=== PATIENT | male | born 1960 | race Caucasian/White ===

== ENCOUNTER → 2017-11-25 | Outpatient (CLI) | payer OTHER ==
[~2017-11-25] MED LIST: ASPEC325 PO; CLB200 PO; GLYB5TAB3 PO; HYDR-5688 PO; LISI10TA PO; METF500T PO; MULT-506 PO; SIMV20TA2 PO
[2017-11-25 13:20] LABS: BASO % 0.4 %; BASO ABS # 0.05 K/uL (0-0.2); EOS % 1.7 %; EOS ABS # 0.19 K/uL (0-0.5); HEMATOCRIT 43.4 % (42-52); HEMOGLOBIN 14.6 g/dL (14.0-18.0); IG# 0.13 K/uL (0.00-0.02); LYMPH % 27.1 %; LYMPH ABS # 3.09 K/uL (1.2-3.4); MEAN CELL VOLUME 89.5 fL (80-100); MEAN CORPUSCULAR HEMOGLOBIN 30.1 pg (25-34); MEAN CORPUSCULAR HGB CONC 33.6 g/dl (32-36); MEAN PLATELET VOLUME 9.3 fL (7.4-10.4); MONO % 11.8 %; MONO ABS # 1.35 K/uL (0.11-0.59); NEUT % 57.9 %; NEUT ABS # 6.59 K/uL (1.4-6.5); PLATELET COUNT 175 K/uL (130-400); RED CELL DISTRIBUTION WIDTH CV 13.3 % (11.5-14.5); RED CELL DISTRIBUTION WIDTH SD 43.8 fL (36.4-46.3)
--- NOTE | 2017-11-26 09:25 | DIAGNOSTIC IMAGING REPORT ---
THREE-PHASE BONE SCAN OF THE PELVIS AND HIPS CLINICAL HISTORY: Left hip pain and swelling post total hip arthroplasty. COMPARISON STUDY: Pelvis and left hip radiographs October 17, 2015. TECHNIQUE: 27 mCi of technetium 99m MDP was injected IV at 1:00 PM on November 25, 2017. Immediately following injection, flow images were obtained in the anterior and posterior projections. Blood pool images were obtained followed by 3 h delayed phase imaging of the pelvis and hips in multiple projections. FINDINGS: No hyperemia is identified within the pelvis or hips. There is moderate uptake adjacent to the left hip arthroplasty. Specifically, moderate uptake is noted adjacent to the acetabular component and within the greater trochanter of the left femur. There is no significant radiotracer uptake adjacent to the tip of either femoral component. There is mild uptake adjacent to the right hip arthroplasty. Multifocal uptake within the spine and knees is likely degenerative. IMPRESSION: 1. No evidence of hyperemia. 2. Moderate uptake within the left acetabulum and greater trochanter of the left femur. This uptake is nonspecific and could reflect remodeling. Loosening could appear similar. 3. Mild uptake within the right hip which is likely within normal limits following arthroplasty. Electronically signed by: Anant Hensley M.D. 11/26/2017 9:24 AM Dictated Date/Time: 11/25/2017 4:49 PM
== END | disposition home or self-care (01) ==
LOC: C.NUCL 12:36
DX: Z96.642 Presence of left artificial hip joint (principal)

== ENCOUNTER 2018-03-28 09:48 | Inpatient (IN) | payer OTHER ==
[2018-03-02 12:49] VITALS: BMI 33.0
--- NOTE | 2018-03-02 14:02 | DIAGNOSTIC IMAGING REPORT ---
CHEST 2 VIEWS ROUTINE CLINICAL HISTORY: PAT preoperative evaluation COMPARISON STUDY: 10/02/2015 FINDINGS: The bones soft tissues and hemidiaphragms are normal. The cardiomediastinal silhouette is normal. The lungs are clear. The pulmonary vasculature is normal. IMPRESSION: Negative chest. The above report was generated using voice recognition software. It may contain grammatical, syntax or spelling errors. Electronically signed by: Chemo Gandara M.D. 03/02/2018 2:01 PM Dictated Date/Time: 03/02/2018 1:59 PM
[2018-03-02 14:17] LABS: BASO % 0.4 %; BASO ABS # 0.04 K/uL (0-0.2); EOS % 1.3 %; EOS ABS # 0.14 K/uL (0-0.5); HEMOGLOBIN 14.6 g/dL (14.0-18.0); LYMPH % 24.9 %; LYMPH ABS # 2.65 K/uL (1.2-3.4); MEAN CELL VOLUME 88.8 fL (80-100); MEAN CORPUSCULAR HEMOGLOBIN 30.2 pg (25-34); MONO % 8.8 %; MONO ABS # 0.94 K/uL (0.11-0.59); NEUT % 63.7 %; NEUT ABS # 6.77 K/uL (1.4-6.5); PLATELET COUNT 187 K/uL (130-400); RED CELL DISTRIBUTION WIDTH CV 13.2 % (11.5-14.5); WHITE BLOOD COUNT 10.64 K/uL (4.8-10.8)
[2018-03-02 15:18] LABS: CALCIUM 8.9 mg/dl (8.5-10.1); CREATININE 1.12 mg/dl (0.60-1.40); POTASSIUM 4.2 mmol/L (3.5-5.1)
[~2018-03-28] VITALS: Ht 182.9 cm; Wt 107.0 kg
[2018-03-28] VITALS (7 sets, daily range): BP systolic 108–152; BP diastolic 57–78; PULSE 55–82; TEMP 36.3–36.9; O2SAT 98–100; Ht 182.9 cm; Wt 107.0 kg
[~2018-03-28 09:48] MED LIST changes: +ACETAMINOPHEN 500 MG TAB PO SCH; -ASPEC325 PO; +ASPI-232 PO; +CEFAZOLIN 2000MG IV PUSH 15 ML IV SCH; -CLB200 PO; +CeleBREX 200 MG CAP PO SCH; +GABAPENTIN 600 MG PO SCH; -HYDR-5688 PO; +LACTATED RINGER'S 1000ML 1,000 ML IV SCH; +LACTATED RINGER'S 1000ML IV SCH; +LACTATED RINGER'S 500 ML IV SCH
[2018-03-28] MEDS ORDERED: FENTANYL CITRATE INJ 50 MCG/1 ML 2 ML VIAL ONE ×3 (12:16→14:42)
[2018-03-28] MEDS ORDERED: MIDAZOLAM HCL 1 MG/ML 2ML VIAL ONE ×2 (12:16→13:27)
--- NOTE | 2018-03-28 12:27 | History & Physical Bridge Note ---
H&P Re-Evaluation Bridge Note: I have examined the patient, reviewed the History & Physical and in the interval since the performance of the History & Physical I have noted the following changes of clinical significance: No changes noted
--- NOTE | 2018-03-28 12:28 | History and Physical ---
History & Physical Date March 28, 2018. Chief Complaint Back and leg pain History of Present Illness The patient is a 58 year old male with complaints of back and leg pain Past Medical/Surgical History Medical Problems: (1) Arthritis of left hip Additional History Hepatic Disease: No Endocrine Disorder: No Kidney Disease: No Hypertension: Yes Heart Disease: No Bleeding Tendencies: No Infectious Diseases: No Other: Diabetes Allergies Coded Allergies: No Known Allergies (Unverified , 03/28/18) Home Medications Scheduled Aspirin (Aspir-81), 1 TAB PO QAM Glyburide-Metformin (Glucovance 5/500 Mg), 1 TAB PO BID Lisinopril (Prinivil), 10 MG PO HS Metformin Hcl (Glucophage), 500 MG PO BID Multivitamin (Multivitamin), 1 TAB PO QAM Simvastatin (Zocor), 20 MG PO QPM Physical Examination Skin: warm/dry, no rash Eyes: normal inspection, EOMI, sclerae normal ENT: normal ENT inspection, pharynx normal Head: normocephalic, atraumatic Neck: supple, no adenopathy, trachea midline Respiratory/Chest: lungs clear, normal breath sounds, no respiratory distress Cardiovascular: regular rate, rhythm, no edema, no murmur Abdomen / GI: normal bowel sounds, non tender Back: normal inspection Extremities: normal inspection, normal range of motion Neurologic/Psych: no motor/sensory deficits, alert, normal reflexes, oriented x 3 Diagnosis Lumbar spinal stenosis with neurogenic claudication Plan of Treatment Decompression and fusion L4-5 L5-S1
[2018-03-28] MEDS ORDERED: HYDROmorphone INJ 1 MG/ML SYR IV PRN (12:30)
[2018-03-28] MEDS ORDERED: ONDANSETRON INJ 2 MG/ML 2 ML VIAL IV PRN ×2 (12:30→15:45)
[2018-03-28] MEDS ORDERED: EpHEDrine SULFATE INJ 50 MG/ML AMP IV PRN (12:30)
[2018-03-28] MEDS ORDERED: ATROPINE SULFATE 0.1 MG/ML 5ML SYR IV PRN (12:30)
[2018-03-28] MEDS ORDERED: BUPIVACAINE 0.25% 30 ML VIAL ONE (12:43)
[2018-03-28] MEDS ORDERED: BACITRACIN 50000 UNIT VIAL ONE (12:43)
[2018-03-28] MEDS ORDERED: EpINEphrine INJ 1MG/ML AMP 1 MG/ML AMP ONE (12:44)
[2018-03-28] MEDS ORDERED: HYDROmorphone INJ 2 MG/ML SYR/VIAL ONE (13:28)
[2018-03-28] MEDS ORDERED: EpHEDrine SULFATE 50MG/5ML SYR ONE (14:13)
[2018-03-28] MEDS ORDERED: LIDOCAINE HCL 2% 2 ML VIAL (20MG/ML) ONE (14:32)
[2018-03-28] MEDS ORDERED: DEXAMETHASONE SOD INJ 4 MG/ML VIAL ONE (14:32)
[2018-03-28] MEDS ORDERED: PROPOFOL IV EMULSION 10 MG/ML 20 ML VIAL ONE (14:32)
[2018-03-28] MEDS ORDERED: ROCURONIUM BROMIDE 10 MG/ML 5 ML VIAL ONE (14:32)
[2018-03-28] MEDS ORDERED: ONDANSETRON INJ 2 MG/ML 2 ML VIAL ONE ×2 (14:32→14:45)
[2018-03-28] MEDS ORDERED: NEOSTIGMINE METHYLSULFATE 1 MG/ML 10ML VIAL ONE (14:45)
[2018-03-28] MEDS ORDERED: GLYCOPYRROLATE INJ 0.2 MG/ML VIAL ONE (14:45)
[2018-03-28] MEDS ORDERED: FLOSEAL HEMOSTATIC MATRIX 10ML TOP ONE (14:54)
[2018-03-28] MEDS ORDERED: SODIUM CHLORIDE 0.9% 1000ML 1,000 ML IV SCH ×2 (15:40→17:30)
--- NOTE | 2018-03-28 15:40 | [facility] Operative Report ---
Operative Report Operative Date March 28, 2018. Pre-Operative Diagnosis SPINAL STENOSIS with neurogenic claudication Post-Operative Diagnosis Same as preoperative diagnosis Procedure(s) Performed 1. Lumbar decompression medial facetectomies foraminotomies L3-4 L4-5 L5-S1. #2 posterior spinal fusion L4-5 L5-S1. #3 placement posterior segmental instrumentation L4-5 L5-S1. #4 interbody fusion L4-5 L5-S1. #5 placement of titanium cage 9 x 26 at L5-S1 and 11 x 26 at L4-5. #6 placement of locally harvested autograft in the posterior lateral gutters. #7 placement InFUSE: Sponge, mass graft in the posterior lateral gutters and ostial amp in the interbody space. Surgeon DR. Fatuma COTA Endbander Surgeon(sDaryl BURTON PAC Estimated Blood Loss 275 ml Findings Severe spinal stenosis Specimens NONE Anesthesia Type General Description of Procedure Patient was met with preoperatively case discussed all questions addressed. After informed consent obtained patient was taken to the operative suite underwent intubation and placed in a prone position on the Ehsan table on top of the Louie frame. All bony prominences well-padded eyes inspected to ensure no external pressure placed upon them. This point the lumbar spine was prepped and draped in normal sterile fashion. Sharp dissection with the assistance of Bovie cautery was performed down to and exposing exposing the lamina and transverse processes of L4-L5 and sacral ala bilaterally. From a caudal to cephalad fashion complete laminectomy of L5 L4 partial laminectomy of L3 performed addressing severe lateral recess and foraminal disease. Pedicle screws were then placed in L4 L5-S1 levels bilaterally with the assistance of fluoroscopy and the purposes horace placed. Through a transforaminal approach on the right a complete discectomy of L5-S1 was performed endplates curetted to subcortical bleeding bone and a 9 x 26 mm titanium cage filled with ostium bone graft tapped in position. Then proceeded L4-5 and again through a transforaminal approach on the right complete discectomy performed endplates created to subcortical bleeding bone and a 11 x 26 mm titanium cage filled with ostial amp tapped in position. Rods then compressed locked in final position bilaterally. The transverse processes of L4-5 and sacral ala burred to subcortical bleeding bone. Infuse collagen sponge master graft and local autograft placed in the posterior gutters. 15 round OLGA drain inserted. Incision then closed with 1 Vicryl fascia 2-0 Vicryl substantially 4 Monocryl for fashion closure Steri-Strips sterile dressings placed. Patient weakened and taken to PACU in a stable condition. Please note Harriett Finley present throughout the entire procedure involved in patient positioning complex portions of the surgery and final skin closure. I attest to the content of the Intraoperative Record and any orders documented therein. Any exceptions are noted below.
--- NOTE | 2018-03-28 15:42 | DIAGNOSTIC IMAGING REPORT ---
LUMBAR SPINE 2 OR 3 VIEW CLINICAL HISTORY: L4-S1 DECOMPRESSION AND FUSION COMPARISON STUDY: No previous studies for comparison. Fluoroscopy time: 25 seconds. FINDINGS: 2 fluoroscopic images demonstrate L4-L5 and L5-S1 discectomies with interbody spacer placement. There is a posterior decompression. Bilateral pedicle screws are noted L4, L5 and S1 levels with interconnecting rods. Hardware is intact. There are no unexpected radiopaque foreign bodies. IMPRESSION: Fluoroscopic images demonstrating L4-S1 discectomies and fusion. Electronically signed by: Anant Hensley M.D. 03/28/2018 3:41 PM Dictated Date/Time: 03/28/2018 3:40 PM
[2018-03-28] MEDS ORDERED: BISACODYL 10 MG SUPP PR PRN (15:45)
[2018-03-28] MEDS ORDERED: ALUMINUM/MAGNESIUM SUSP 30 ML UDC PO PRN (15:45)
[2018-03-28] MEDS ORDERED: METOCLOPRAMIDE HCL INJ 5 MG/ML 2 ML VIAL IV PRN (15:45)
[2018-03-28] MEDS ORDERED: MAGNESIUM HYDROXIDE SUSP 30 ML UDC PO PRN (15:45)
[2018-03-28] MEDS ORDERED: LORAZEPAM INJ 0.5 MG in SYRINGE 0.75 ML IV PRN (15:45)
[2018-03-28] MEDS ORDERED: DO NOT ADMINISTER PNEUMOCOCCAL VACCINE PRN (15:45)
[2018-03-28] MEDS ORDERED: hydrOXYzine HCL 25 MG TAB PO PRN (15:45)
[2018-03-28] MEDS ORDERED: ACETAMINOPHEN IV 100 ML IV PRN (15:45)
[2018-03-28] MEDS ORDERED: FAMOTIDINE 20 MG TAB PO PRN (15:45)
[2018-03-28] MEDS ORDERED: LORAZEPAM 0.5 MG TAB PO PRN (15:45)
[2018-03-28] MEDS ORDERED: PROMETHAZINE HCL INJ 12.5 MG in SODIUM CHLORIDE 0.9% 50ML 50 ML IV PRN (15:45)
[2018-03-28] MEDS ORDERED: DO NOT ADMINISTER FLU VACCINE PRN (15:45)
[2018-03-28] MEDS ORDERED: ACETAMINOPHEN 500 MG TAB PO PRN (15:45)
[2018-03-28] MEDS ORDERED: NALOXONE HCL 0.4 MG/1 ML VIAL/CARP IV PRN ×2 (15:45)
[2018-03-28] MEDS ORDERED: SOD PHOSPHATE/SOD BIPHOSPHATE ENEMA 132 ML BTL PR PRN (15:45)
[2018-03-28] MEDS ORDERED: HYDROmorphone HCL 0.5MG/ML 50 ML CASSETTE ONE (15:58)
[2018-03-28] MEDS: FENTANYL CITRATE INJ 50 MCG/1 ML 2 ML VIAL IV PRN ×2 (16:19→16:24)
--- NOTE | 2018-03-28 16:39 | Anesthesiology Progress Note ---
Anesthesia Post Op Note Date & Time March 28, 2018 at 16:39 Vital Signs Pain Intensity: 4 Vital Signs Past 12 Hours Date Time Temp Pulse Resp B/P (MAP) Pulse Ox O2 Delivery O2 Flow Rate FiO2 03/28/18 16:30 62 13 118/59 100 Nasal Cannula 4 03/28/18 16:20 53 12 127/63 100 Nasal Cannula 4 03/28/18 16:10 60 12 123/66 100 Oxymask 8 03/28/18 16:00 67 16 128/73 100 Oxymask 10 03/28/18 15:54 36.7 76 12 156/69 100 Oxymask 10 03/28/18 10:18 36.5 55 18 152/78 98 Room Air Notes Mental Status: alert / awake / arousable, participated in evaluation Pt Amnestic to Procedure: Yes Nausea / Vomiting: adequately controlled Pain: adequately controlled Airway Patency, RR, SpO2: stable & adequate BP & HR: stable & adequate Hydration State: stable & adequate Anesthetic Complications: no major complications apparent
[2018-03-28] MEDS ORDERED: GLUCAGON FOR INJ 1 MG VIAL SQ PRN (17:45)
[2018-03-28] MEDS ORDERED: CARBOHYDRATES FOR HYPOGLYCEMIA PO PRN (17:45)
[2018-03-28] MEDS ORDERED: GLUCOSE 10 TABS/TUBE PO PRN (17:45)
[2018-03-28] MEDS ORDERED: GLUCOSE 40% GEL 15 GM TUBE PO PRN (17:45)
[2018-03-28] MEDS ORDERED: DEXTROSE 50% 50 ML SYR IV PRN (17:45)
--- NOTE | 2018-03-28 17:55 | Medical Consult ---
Consultation Date of Consultation: March 28, 2018. Attending Physician: Seven Kaiser D.O. Reason for Consultation: Medical consult History of Present Illness Pt is 58 y/o M with PMH HTN, HLD, DM II, hx colon CA s/p resection and chemo in 2010 seen in medical consult after spinal fusion L4-L5, L5-S1 by Dr. Kaiser. Patient states moderate pain at this time and has CURATOR OF COLLECTIONS pump. Denies nausea, vomiting. Tolerating fluids. Has Flores catheter in place. Does not feel that has passed gas since surgery. Last BM this morning. States some tingling and numbness persists to bilateral lower extremities. Denies fever/chills, diaphoresis, VASQUEZ, dizziness, syncope, vision changes, neck pain, CP, SOB, orthopnea, palpitations, cough, sore throat, choking, otalgia, rhinorrhea, abdominal pain, extremity edema, rashes. Past Medical/Surgical History Medical Problems: (1) Arthritis of left hip Status: Chronic (2) Colon cancer Status: Resolved (3) DM type 2 (diabetes mellitus, type 2) Status: Chronic (4) HTN (hypertension) Status: Chronic (5) Hyperlipidemia Status: Chronic (6) Lumbar stenosis with neurogenic claudication Status: Chronic Surgical Problems: (1) History of cataract surgery Status: Resolved (2) History of colon resection Permanent Comment: 2010 - colon CA Status: Resolved (3) History of lumbar surgery Permanent Comment: 03/28/18 - Dr Kaiser - [facility] Status: Resolved (4) History of total left hip arthroplasty Status: Resolved (5) History of total right hip arthroplasty Status: Resolved (6) Hx of cholecystectomy Status: Resolved Family History Diabetes mellitus FH: bladder cancer FH: colon cancer FH: stomach cancer Hypertension Social History Smoking Status: Never Smoker Smokeless Tobacco Use: No Alcohol Use: socially Drug Use: none Marital Status: Allergies Coded Allergies: No Known Allergies (Unverified , 03/28/18) Current Inpatient Medications Current Inpatient Medications Medications (Trade) Dose Ordered Sig/Kwesi Route Start Time Stop Time Status Last Admin Dose Admin Cefazolin Sodium 15 ml @ 3.75 mls/ min PREOP IV 03/28/18 06:00 03/28/18 18:00 03/28/18 12:58 3.75 MLS/MIN Acetaminophen (Tylenol Tab) 1,000 mg PREOP PO 03/28/18 06:00 03/28/18 18:00 03/28/18 10:46 1,000 MG Celecoxib (CeleBREX CAP) 200 mg PREOP PO 03/28/18 06:00 03/28/18 18:00 03/28/18 10:45 200 MG Gabapentin (Neurontin Cap) 600 mg PREOP PO 03/28/18 06:00 03/28/18 18:00 03/28/18 10:46 600 MG Lactated Ringer's 1,000 ml @ 15 mls/hr Q24H IV 03/28/18 06:00 03/29/18 05:59 03/28/18 10:46 15 MLS/HR Promethazine HCl 12.5 mg/Sodium Chloride 50.5 ml @ 202 mls/hr Q6H PRN IV 03/28/18 15:45 04/27/18 15:44 Ondansetron HCl (Zofran Inj) 4 mg Q6H PRN IV 03/28/18 15:45 04/27/18 15:44 Metoclopramide HCl (Reglan Inj) 10 mg Q6H PRN IV 03/28/18 15:45 04/27/18 15:44 Lorazepam (Ativan Tab) 0.5 mg Q8H PRN PO 03/28/18 15:45 04/27/18 15:44 Lorazepam 0.5 mg/ Syringe 1 ml @ 1 mls/min Q8H PRN IV 03/28/18 15:45 04/27/18 15:44 Pneumococcal Polysaccharide Vaccine 1 ea PRN PRN N/A 03/28/18 15:45 04/27/18 15:44 Influenza Virus Vacc Triv Types A&B 1 ea PRN PRN N/A 03/28/18 15:45 04/27/18 15:44 Polyethylene (Miralax Powder Packet) 17 gm Q6 PO 03/30/18 06:00 04/29/18 05:59 Bisacodyl (Dulcolax Supp) 10 mg DAILY PRN NV 03/28/18 15:45 04/27/18 15:44 Magnesium Hydroxide (Milk Of Magnesia Susp) 30 ml DAILY PRN PO 03/28/18 15:45 04/27/18 15:44 Hydromorphone HCl (Dilaudid Inj) 0.5-1mg prn moder... Q3H PRN IV 03/29/18 06:00 04/12/18 05:59 Oxycodone HCl (Roxicodone Immediate Rel Tab) 5-10mg prn moderate to sev... Q4H PRN PO 03/29/18 06:00 04/12/18 05:59 Cefazolin Sodium 2000 mg/Syringe 15 ml @ 3.75 mls/ min Q8H IV 03/28/18 20:00 03/29/18 04:03 Sodium Chloride 1,000 ml @ 150 mls/hr Q6H40M IV 03/28/18 17:30 04/27/18 17:29 Acetaminophen (Tylenol Tab) 1,000 mg Q8H PRN PO 03/28/18 15:45 04/27/18 15:44 Acetaminophen 100 ml @ 400 mls/hr Q8H PRN IV 03/28/18 15:45 04/27/18 15:44 Naloxone HCl (Narcan Inj) 0.1 mg Q5M PRN IV 03/28/18 15:45 04/27/18 15:44 Senna/Docusate Sodium (Senokot S Tab) 2 tab HS PO 03/28/18 21:00 04/27/18 20:59 Sodium Biphosphate/ Sodium Phosphate (Fleet Enema) 132 ml ONE PRN NV 03/28/18 15:45 04/27/18 15:44 Hydroxyzine HCl (Vistaril Tab) 25 mg Q8H PRN PO 03/28/18 15:45 04/27/18 15:44 Al Hydroxide/Mg Hydroxide (Maalox Susp) 30 ml Q6H PRN PO 03/28/18 15:45 04/27/18 15:44 Famotidine (Pepcid Tab) 20 mg Q12 PRN PO 03/28/18 15:45 04/27/18 15:44 Diphenhydramine HCl (Benadryl Cap) 25 mg Q6H PRN PO 03/28/18 15:45 04/27/18 15:44 Miscellaneous Information (Discontinue CURATOR OF COLLECTIONS) 1 ea ONE ONCE N/A 03/29/18 06:00 03/29/18 06:01 Naloxone HCl (Narcan Inj) 0.1 mg Q5M PRN IV 03/28/18 15:45 03/29/18 06:00 Hydromorphone HCl (Dilaudid Home Comfort Advisor) 25 mg PRN PRN IV 03/28/18 15:45 03/29/18 06:00 Sodium Chloride 1,000 ml @ 15 mls/hr Q24H IV 03/28/18 15:40 03/29/18 06:00 Aspirin (Ecotrin Tab) 81 mg QAM PO 03/29/18 09:00 04/28/18 08:59 Lisinopril (Zestril Tab) 10 mg HS PO 03/28/18 21:00 04/27/18 20:59 Simvastatin (Zocor Tab) 20 mg QPM PO 03/28/18 21:00 04/27/18 20:59 Insulin Glargine (Lantus Solostar Pen) 15 units Q12 SC 03/28/18 21:00 04/27/18 20:59 UNV Insulin Aspart (novoLOG ASPART) SLIDING SCALE If C... ACHS SC 03/28/18 21:00 04/27/18 20:59 UNV Glucose (Glucose 40% Gel) 15-30 GRAMS 15 GRAMS... UD PRN PO 03/28/18 17:45 04/27/18 17:44 UNV Glucose (Glucose Chew Tab) 4-8 Tablets 4 Tabl... UD PRN PO 03/28/18 17:45 04/27/18 17:44 UNV Dextrose (Dextrose 50% 50ML Syringe) 25-50ML 25ML FOR ... UD PRN IV 03/28/18 17:45 04/27/18 17:44 UNV Glucagon (Glucagon Inj) 1 mg UD PRN SQ 03/28/18 17:45 04/27/18 17:44 UNV Carbohydrates (Carbohydrates For Hypoglycemia) 15-30 GRAMS 15 grams if BSG 54-69... UD PRN PO 03/28/18 17:45 04/27/18 17:44 UNV Review of Systems See HPI for pertinent positives & negatives. All other systems reviewed and were otherwise negative Physical Exam Date Time Temp Pulse Resp B/P (MAP) Pulse Ox O2 Delivery O2 Flow Rate FiO2 03/28/18 17:35 36.5 69 18 139/74 (95) 100 Nasal Cannula 4.0 03/28/18 16:40 36.5 64 14 124/65 99 Nasal Cannula 4 03/28/18 16:30 62 13 118/59 100 Nasal Cannula 4 03/28/18 16:20 53 12 127/63 100 Nasal Cannula 4 03/28/18 16:10 60 12 123/66 100 Oxymask 8 03/28/18 16:00 67 16 128/73 100 Oxymask 10 03/28/18 15:54 36.7 76 12 156/69 100 Oxymask 10 03/28/18 10:18 36.5 55 18 152/78 98 Room Air General Appearance: WD/WN, no apparent distress Head: normocephalic, atraumatic Eyes: normal inspection, EOMI, sclerae normal ENT: hearing grossly normal, pharynx normal, + pertinent finding (mucous membranes moist) Neck: supple, trachea midline Respiratory/Chest: lungs clear, normal breath sounds, no respiratory distress Cardiovascular: regular rate, rhythm, no murmur Abdomen/GI: normal bowel sounds, non tender, soft Back: + pertinent finding (surgical dressing to lumbar region intact without significant drainage, some bloody drainage noted to surgical drain) Extremities/Musculoskelatal: normal capillary refill, no pedal edema, + pertinent finding (bilateral distal pulses intact, sensation to light touch intact, bilateral pedal pushes/pulls intact) Neurologic/Psych: alert, normal mood/affect, oriented x 3 Skin: warm/dry Laboratory Results Last 24 Hours Test 03/28/18 10:11 03/28/18 16:12 Bedside Glucose 154 mg/dl 145 mg/dl Assessment & Plan Pt post op day# 0 S/P L4-L5, L5-S1 Lumbar spinal fusion/decompression by Dr Kaiser -pain management per ortho -wound management per ortho -PT/OT as appropriate -DVT prophylaxis per ortho -incentive spirometry -monitor H&H for acute blood loss anemia DM II HA1c in am -hold oral meds -basal, bolus insulin per protocol HTN Stable -continue lisinopril HLD -continue simvastatin DVT Prophylaxis -per ortho Disposition admit medsurg Full code Follows with Dr Margarito Mcgee for routine care Pt was seen with Dr Bahena. See addendum Pt will be seen by Dr Lara remaining hospital course ATTENDING ADDENDUM patient seen and examined care coordinated with Ruby Bazan PA-C This is a 58-year-old male with chronic low back pain, underwent lumbar spinal decompression surgery today Recovering well postop Has minimum pain on surgical site, getting relief with morphine CURATOR OF COLLECTIONS Denies of any chest pain, shortness of breath, cough Continue further management as per orthopedics Type 2 diabetes Hold oral meds Insulin sliding scale Please refer to documentation by Ruby Bazan PA-C for further discussion of other chronic issues Eli Bahena MD Additional Copies To Margarito Dent D.O.
[2018-03-28] MEDS: HYDROmorphone HCL 0.5MG/ML 50 ML CASSETTE IV PRN ×2 (18:31→23:05)
[2018-03-28] MEDS: CEFAZOLIN IV 2,000 MG in SYRINGE 0 ML IV SCH (19:54)
[2018-03-28] MEDS: DOCUSATE SODIUM/SENNA 50/8.6MG TAB PO SCH (20:59)
[2018-03-28] MEDS: SIMVASTATIN 20 MG TAB PO SCH (21:00)
[2018-03-28] MEDS: LISINOPRIL 10 MG TAB PO SCH (21:00)
[2018-03-28] MEDS: INSULIN GLARGINE SOLOSTAR 100 UNITS/ML 3 ML PEN SC SCH (21:05)
[2018-03-28] MEDS: INSULIN ASPART 100 UNITS/ML 3 ML PEN SC SCH (21:06)
[2018-03-29] MEDS ORDERED: NURSING VERBAL MED ORDER ONE ×2 (00:45→06:45)
[2018-03-29 03:20] VITALS: BP 99/52; PULSE 62; TEMP 36.6; O2SAT 100
[2018-03-29] MEDS: CEFAZOLIN IV 2,000 MG in SYRINGE 0 ML IV SCH (03:41)
[2018-03-29 05:32] LABS: BASO % 0.1 %; BASO ABS # 0.01 K/uL (0-0.2); HEMATOCRIT 35.9 % (42-52); HEMOGLOBIN 12.4 g/dL (14.0-18.0); IG# 0.07 K/uL (0.00-0.02); LYMPH % 7.2 %; LYMPH ABS # 1.35 K/uL (1.2-3.4); MEAN CELL VOLUME 86.7 fL (80-100); MEAN CORPUSCULAR HGB CONC 34.5 g/dl (32-36); MEAN PLATELET VOLUME 8.5 fL (7.4-10.4); MONO % 7.3 %; MONO ABS # 1.37 K/uL (0.11-0.59); NEUT ABS # 16.07 K/uL (1.4-6.5); PLATELET COUNT 172 K/uL (130-400); RED CELL DISTRIBUTION WIDTH CV 13.3 % (11.5-14.5); RED CELL DISTRIBUTION WIDTH SD 42.1 fL (36.4-46.3); WHITE BLOOD COUNT 18.87 K/uL (4.8-10.8)
[2018-03-29 05:46] LABS: CALCIUM 7.7 mg/dl (8.5-10.1); CREATININE 1.16 mg/dl (0.60-1.40); POTASSIUM 4.6 mmol/L (3.5-5.1)
[2018-03-29] MEDS ORDERED: DC PCA ONE (06:00)
[2018-03-29] MEDS ORDERED: HYDROmorphone INJ 0.5 MG/0.5 ML SYR IV PRN (06:00)
[2018-03-29 06:28] LABS: HEMOGLOBIN A1C 6.7 % (4.5-5.6)
[2018-03-29] MEDS: OXYCODONE HCL IR 5 MG TAB (IMMEDIATE RELEASE) PO PRN ×2 (07:19→12:01)
[2018-03-29] MEDS ORDERED: RXC5 PO (07:39)
--- NOTE | 2018-03-29 07:40 | Discharge Instructions ---
Discharge Instructions Date of Service March 29, 2018. Admission Reason for Admission: Lumbar Spinal Stenosis Discharge Discharge Diagnosis / Problem: lumbar stenosis Discharge Goals Goal(s): Improve function Activity Recommendations Activity Limitations: per Instructions/Follow-up section . Instructions / Follow-Up Instructions / Follow-Up ACTIVITY RECOMMENDATIONS: SELF CARE INSTRUCTIONS AFTER THORACIC/LUMBAR FUSIONS 1. You may walk to your tolerance. It is good exercise for your legs and back. Expect some back and intermittent leg aches and pains. 2. You may perform "counter-top" level activities (make a sandwich, vito with a project, etc.). 3. No bending or lifting of more than 10 pounds or back twisting of any nature (roll like a log when turning in bed). 4. You may ride in a car for 20-30 minutes at a time. No driving until after your first visit with your doctor. 5. Frequent changes of position and restricting sitting to 30 minutes at a time will help limit the amount of back spasms and stiffness you may experience. 6. You may discontinue the use of ambulatory aids (cane, crutches, etc.) once your strength and confidence allow. 7. You may educational interpreter the shower and let water strike your incision when you arrive home at least once daily. Do not take a tub bath, sit in a hot tub or go into a swimming pool until after your first recheck in the office. SPECIAL CARE INSTRUCTIONS: VERY IMPORTANT TO READ AND REVIEW A. Your surgical incision has been closed with a cosmetic suture under the skin that will dissolve in about 6 weeks. In 14 days, you can use a pair of clean scissors and cut the suture that is left outside of the skin at the ends of your incision. 1. The small skin tapes can be removed 7 days after surgery if they have not fallen off by that point. 2. You may keep the wound open to air as much as possible to promote healing after post-op day number 5 unless told otherwise by your doctor. 3. If you think the wound looks like it is becoming infected (redness or worsening drainage) and/or you are experiencing fever, chill or worsening back pain and muscle spasms, contact the office so that we may evaluate you as soon as possible. B. Complications are uncommon, but please contact us if you have any signs or symptoms of: 1. wound infection (fever higher than 102.5 degrees F, redness, separation of wound, drainage, or increasing pain from the incision) 2. blood clots in legs (pain, swelling, redness and warmth in legs) 3. urinary tract infection (fever higher than 102.5 degrees F, burning upon urination or increased frequency of urination) 4. nerve problems (inability to walk on your toes or heels, numbness, loss of bowel or bladder control) 5. any other symptoms that concern you C. Please call the office at if you have any concerns or questions about your operation or recovery. D. No smoking! Smoking drastically decreases the chance of a solid fusion. E. Do not take any anti-inflammatory medications (Indocin, Advil, Motrin, Aspirin, Naprosyn, etc.) as these may inhibit the chance of a solid fusion. Tylenol is okay to take for pain. MANAGING PAIN AFTER SPINAL SURGERY 1. Narcotic medication is intended for short-term use and will be provided for surgical pain. Surgical pain usually lasts for a period of 4-6 weeks. Narcotic medication includes Percocet, Vicodin, Darvocet, Tylenol #3 or Lortab. 2. Longer-term pain is more appropriately treated with non-narcotic medication such as Tylenol ES. 3. Muscle spasm is not appropriately treated with narcotics. Muscle relaxers such as Soma, Flexeril or Skelaxin can be used along with Tylenol ES. 4. Remember that we all live with some "aches and pains". This is not unusual or uncommon after an injury or as we get older. a. Back pain is expected and may include muscle spasms for 4 to 6 weeks after surgery. The pain should gradually improve. If the pain worsens for no apparent reason, please contact the office. b. Intermittent leg pain may also be experienced and should not be concerned about unless it worsens for no apparent reason. If so, please contact the office. 5. We will provide appropriate medication within the normal guidelines of their prescribed use. We will also be very cautious and aware of potential abuse and extended duration of patients' medication needs. a. Pain medications are for your comfort and to assist with sleep and rest so that the tissue can heal. They are not provided in order to return to normal activity and should not be used through the day. To do so or worsening pain at night can result from ongoing tissue damage and development of tolerance to the prescribed medicine. 6. Please allow 2-3 days to process refills. Prescriptions will not be mailed but must be picked up at the office. FOLLOW UP VISIT: Keep your scheduled follow-up appointment. Any questions, please call the office at . Current Hospital Diet Patient's current hospital diet: Diabetes Type 2 Diet Discharge Diet Recommended Diet: Regular Diet Procedures Procedures Performed: 1. Lumbar decompression medial facetectomies foraminotomies L3-4 L4-5 L5-S1. #2 posterior spinal fusion L4-5 L5-S1. #3 placement posterior segmental instrumentation L4-5 L5-S1. #4 interbody fusion L4-5 L5-S1. #5 placement of titanium cage 9 x 26 at L5-S1 and 11 x 26 at L4-5. #6 placement of locally harvested autograft in the posterior lateral gutters. #7 placement InFUSE: Sponge, mass graft in the posterior lateral gutters and ostial amp in the interbody space. Pending Studies Studies pending at discharge: no Laboratory Results Hemoglobin A1c Test 03/29/18 05:13 Range/Units Estimated Average Glucose 146 mg/dl Hemoglobin A1c 6.7 H 4.5-5.6 % Medical Emergencies . Who to Call and When: Medical Emergencies: If at any time you feel your situation is an emergency, please call 911 immediately. . Non-Emergent Contact Non-Emergency issues call your: Primary Care Provider . "Provider Documentation" section prepared by Seven Kaiser. .
[2018-03-29 07:45] VITALS: BP 142/48; PULSE 68; TEMP 36.6; O2SAT 98
--- NOTE | 2018-03-29 08:01 | Anesthesiology Progress Note ---
Anesthesia Post Op Note Date & Time March 29, 2018 at 08:01 Vital Signs Pain Intensity: 9.0 Vital Signs Past 12 Hours Date Time Temp Pulse Resp B/P (MAP) Pulse Ox O2 Delivery O2 Flow Rate FiO2 03/29/18 03:20 36.6 62 16 99/52 (68) 100 Nasal Cannula 3.0 03/28/18 23:15 Nasal Cannula 3.0 03/28/18 22:55 36.9 82 16 118/69 (85) 98 Nasal Cannula 3.0 Notes Mental Status: alert / awake / arousable, participated in evaluation Pt Amnestic to Procedure: Yes Nausea / Vomiting: adequately controlled Pain: adequately controlled Airway Patency, RR, SpO2: stable & adequate BP & HR: stable & adequate Hydration State: stable & adequate Anesthetic Complications: no major complications apparent
[2018-03-29] MEDS: ASPIRIN 81 MG ECTAB PO SCH (08:43)
[2018-03-29] MEDS: INSULIN GLARGINE SOLOSTAR 100 UNITS/ML 3 ML PEN SC SCH ×2 (08:47→21:22)
[2018-03-29] MEDS: INSULIN ASPART 100 UNITS/ML 3 ML PEN SC SCH ×4 (08:47→21:00)
--- NOTE | 2018-03-29 11:06 | Progress Note ---
Progress Note Date of Service March 29, 2018. Progress Note Back pain is controlled leg symptoms markedly improved. Vital signs are stable. On exam his good strength testing appears comfortable. Assessment status post lumbar decompression fusion per plan at this time will continue physical therapy advance his bowel regiment anticipate discharge home in the next few days.
[2018-03-29 11:38] VITALS: BP 132/52; PULSE 69; TEMP 37; O2SAT 97
[2018-03-29 15:08] VITALS: BP 104/63; PULSE 56; TEMP 36.9; O2SAT 98
--- NOTE | 2018-03-29 17:54 | Progress Note ---
Medicine Progress Note Date & Time of Visit: March 29, 2018 at 15:38. Subjective 58-year-old man status post lumbar spinal fusion with decompression by Dr. Kaiser, postop day 1. Doing well, tolerating p.o., pain is controlled with current medication. Patient denies any other symptoms at this time. Objective Last 8 Hrs Date Time Temp Pulse Resp B/P (MAP) Pulse Ox O2 Delivery O2 Flow Rate FiO2 03/29/18 15:08 36.9 56 16 104/63 (77) 98 Room Air 03/29/18 11:38 37.0 69 17 132/52 (78) 97 Room Air 03/29/18 08:31 Room Air 98 03/29/18 07:45 36.6 68 16 142/48 (79) 98 Room Air Physical Exam: GEN: WNWD, in no acute distress, alert and appropriate HEENT: NC/AT, normal sclerae, MMM CARDIO: reg rate, S1/2 heard without m/g/r LUNGS: CTA bilaterally, no crackles, rales or wheezes, good diaphragmatic excursion ABD: soft, non-tender, non-distended, no rebound or guarding, +BS BACK: was not examined as patient had difficulty leaning forward. OLGA drain noted with bloody drainage. EXTREMITY: RP and DP palpable 2+ bilat, no LE swelling or edema, extremities are warm and well-perfused NEURO: CN 2-12 intact, sensation intact throughout, no gross focal deficits. MUSC: 5/5 strength throughout, no gross focal deficits SKIN: warm and dry and wound on back not examined. Laboratory Results: 03/29/18 05:13 Red Blood Count 4.14, Mean Corpuscular Volume 86.7, Mean Corpuscular Hemoglobin 30.0, Mean Corpuscular Hemoglobin Concent 34.5, Mean Platelet Volume 8.5, Neutrophils (%) (Auto) 85.0, Lymphocytes (%) (Auto) 7.2, Monocytes (%) (Auto) 7.3, Eosinophils (%) (Auto) 0.0, Basophils (%) (Auto) 0.1, Neutrophils # (Auto) 16.07, Lymphocytes # (Auto) 1.35, Monocytes # (Auto) 1.37, Eosinophils # (Auto) 0.00, Basophils # (Auto) 0.01 03/29/18 05:13 Test 03/02/18 00:00 03/29/18 05:13 03/29/18 17:14 Urine Color YELLOW Urine Appearance CLEAR (CLEAR) Urine pH 5.0 (4.5-7.5) Urine Specific [place] 1.016 (1.000-1.030) Urine Protein NEG (NEG) Urine Glucose (UA) NEG (NEG) Urine Ketones NEG (NEG) Urine Occult Blood NEG (NEG) Urine Nitrite NEG (NEG) Urine Bilirubin NEG (NEG) Urine Urobilinogen NEG (NEG) Urine Leukocyte Esterase NEG (NEG) White Blood Count 18.87 K/uL (4.8-10.8) Red Blood Count 4.14 M/uL (4.7-6.1) Hemoglobin 12.4 g/dL (14.0-18.0) Hematocrit 35.9 % (42-52) Mean Corpuscular Volume 86.7 fL (80-100) Mean Corpuscular Hemoglobin 30.0 pg (25-34) Mean Corpuscular Hemoglobin Concent 34.5 g/dl (32-36) Platelet Count 172 K/uL (130-400) Mean Platelet Volume 8.5 fL (7.4-10.4) Neutrophils (%) (Auto) 85.0 % Lymphocytes (%) (Auto) 7.2 % Monocytes (%) (Auto) 7.3 % Eosinophils (%) (Auto) 0.0 % Basophils (%) (Auto) 0.1 % Neutrophils # (Auto) 16.07 K/uL (1.4-6.5) Lymphocytes # (Auto) 1.35 K/uL (1.2-3.4) Monocytes # (Auto) 1.37 K/uL (0.11-0.59) Eosinophils # (Auto) 0.00 K/uL (0-0.5) Basophils # (Auto) 0.01 K/uL (0-0.2) RDW Standard Deviation 42.1 fL (36.4-46.3) RDW Coefficient of Variation 13.3 % (11.5-14.5) Immature Granulocyte % (Auto) 0.4 % Immature Granulocyte # (Auto) 0.07 K/uL (0.00-0.02) Anion Gap 6.0 mmol/L (3-11) Est Creatinine Clear Calc Drug Dose 87.7 ml/min Estimated GFR () 80.0 Estimated GFR (Non- 69.0 BUN/Creatinine Ratio 13.9 (10-20) Estimated Average Glucose 146 mg/dl Hemoglobin A1c 6.7 % (4.5-5.6) Calcium Level 7.7 mg/dl (8.5-10.1) Bedside Glucose 124 mg/dl (70-99) Last 24 Hours Test 03/28/18 16:12 03/28/18 20:55 03/29/18 05:13 03/29/18 08:02 Bedside Glucose 145 mg/dl 237 mg/dl 192 mg/dl White Blood Count 18.87 K/uL Red Blood Count 4.14 M/uL Hemoglobin 12.4 g/dL Hematocrit 35.9 % Mean Corpuscular Volume 86.7 fL Mean Corpuscular Hemoglobin 30.0 pg Mean Corpuscular Hemoglobin Concent 34.5 g/dl Platelet Count 172 K/uL Mean Platelet Volume 8.5 fL Neutrophils (%) (Auto) 85.0 % Lymphocytes (%) (Auto) 7.2 % Monocytes (%) (Auto) 7.3 % Eosinophils (%) (Auto) 0.0 % Basophils (%) (Auto) 0.1 % Neutrophils # (Auto) 16.07 K/uL Lymphocytes # (Auto) 1.35 K/uL Monocytes # (Auto) 1.37 K/uL Eosinophils # (Auto) 0.00 K/uL Basophils # (Auto) 0.01 K/uL RDW Standard Deviation 42.1 fL RDW Coefficient of Variation 13.3 % Immature Granulocyte % (Auto) 0.4 % Immature Granulocyte # (Auto) 0.07 K/uL Sodium Level 137 mmol/L Potassium Level 4.6 mmol/L Chloride Level 105 mmol/L Carbon Dioxide Level 26 mmol/L Anion Gap 6.0 mmol/L Blood Urea Nitrogen 16 mg/dl Creatinine 1.16 mg/dl Est Creatinine Clear Calc Drug Dose 87.7 ml/min Estimated GFR () 80.0 Estimated GFR (Non- 69.0 BUN/Creatinine Ratio 13.9 Random Glucose 182 mg/dl Estimated Average Glucose 146 mg/dl Hemoglobin A1c 6.7 % Calcium Level 7.7 mg/dl Test 03/29/18 12:04 Bedside Glucose 115 mg/dl Assessment & Plan 58-year-old man status post lumbar spinal fusion with decompression by Dr. Kaiser, postop day 1. Doing well, tolerating p.o., pain is controlled with current medication. Patient denies any other symptoms at this time. 1. Postoperative state status post L4-L5, L5-S1 lumbar spinal fusion and decompression by Dr. Kaiser, postop day 1 -pain management per ortho -wound management per ortho -PT/OT as appropriate -DVT prophylaxis per ortho -incentive spirometry encouraged -monitor H&H for acute blood loss anemia 2. Diabetes mellitus type 2-A1c shows good outpatient control with a X.7 this morning. Holding oral meds and controlling glucose with insulin sliding scale and carb coverage along with Lantus. Currently at inpatient goal. 3. Hypertension-stable, continue lisinopril per home regimen 4. Hyperlipidemia-continue simvastatin 5. Leukocytosis-likely inflammatory response from the in the absence of fever. No pain in the legs at this point. We will continue to monitor with CBC in a.m. DVT prophylaxis-SCDs Full code Disposition-likely to home on . Juanita Lara DO [facility] hospitalist Current Inpatient Medications: Current Inpatient Medications Medications (Trade) Dose Ordered Sig/[place] Route Start Time Stop Time Status Last Admin Dose Admin Promethazine HCl 12.5 mg/Sodium Chloride 50.5 ml @ 202 mls/hr Q6H PRN IV 03/28/18 15:45 04/27/18 15:44 Ondansetron HCl (Zofran Inj) 4 mg Q6H PRN IV 03/28/18 15:45 04/27/18 15:44 Metoclopramide HCl (Reglan Inj) 10 mg Q6H PRN IV 03/28/18 15:45 04/27/18 15:44 Lorazepam (Ativan Tab) 0.5 mg Q8H PRN PO 03/28/18 15:45 04/27/18 15:44 Lorazepam 0.5 mg/ Syringe 1 ml @ 1 mls/min Q8H PRN IV 03/28/18 15:45 04/27/18 15:44 Pneumococcal Polysaccharide Vaccine 1 ea PRN PRN N/A 03/28/18 15:45 04/27/18 15:44 Influenza Virus Vacc Triv Types A&B 1 ea PRN PRN N/A 03/28/18 15:45 04/27/18 15:44 Polyethylene (Miralax Powder Packet) 17 gm Q6 PO 03/30/18 06:00 04/29/18 05:59 Bisacodyl (Dulcolax Supp) 10 mg DAILY PRN IN 03/28/18 15:45 04/27/18 15:44 Magnesium Hydroxide (Milk Of Magnesia Susp) 30 ml DAILY PRN PO 03/28/18 15:45 04/27/18 15:44 Hydromorphone HCl (Dilaudid Inj) 0.5-1mg prn moder... Q3H PRN IV 03/29/18 06:00 04/12/18 05:59 Oxycodone HCl (Roxicodone Immediate Rel Tab) 5-10mg prn moderate to sev... Q4H PRN PO 03/29/18 06:00 04/12/18 05:59 03/29/18 12:01 10 MG Acetaminophen (Tylenol Tab) 1,000 mg Q8H PRN PO 03/28/18 15:45 04/27/18 15:44 Acetaminophen 100 ml @ 400 mls/hr Q8H PRN IV 03/28/18 15:45 04/27/18 15:44 Naloxone HCl (Narcan Inj) 0.1 mg Q5M PRN IV 03/28/18 15:45 04/27/18 15:44 Senna/Docusate Sodium (Senokot S Tab) 2 tab HS PO 03/28/18 21:00 04/27/18 20:59 03/28/18 20:59 2 TAB Sodium Biphosphate/ Sodium Phosphate (Fleet Enema) 132 ml ONE PRN IN 03/28/18 15:45 04/27/18 15:44 Hydroxyzine HCl (Vistaril Tab) 25 mg Q8H PRN PO 03/28/18 15:45 04/27/18 15:44 Al Hydroxide/Mg Hydroxide (Maalox Susp) 30 ml Q6H PRN PO 03/28/18 15:45 04/27/18 15:44 Famotidine (Pepcid Tab) 20 mg Q12 PRN PO 03/28/18 15:45 04/27/18 15:44 Diphenhydramine HCl (Benadryl Cap) 25 mg Q6H PRN PO 03/28/18 15:45 04/27/18 15:44 Aspirin (Ecotrin Tab) 81 mg QAM PO 03/29/18 09:00 04/28/18 08:59 03/29/18 08:43 81 MG Lisinopril (Zestril Tab) 10 mg HS PO 03/28/18 21:00 04/27/18 20:59 03/28/18 21:00 10 MG Simvastatin (Zocor Tab) 20 mg QPM PO 03/28/18 21:00 04/27/18 20:59 03/28/18 21:00 20 MG Insulin Glargine (Lantus Solostar Pen) 15 units Q12 SC 03/28/18 21:00 04/27/18 20:59 03/29/18 08:47 15 UNITS Insulin Aspart (novoLOG ASPART) SLIDING SCALE If C... ACHS SC 03/28/18 21:00 04/27/18 20:59 03/29/18 12:53 2 UNITS Glucose (Glucose 40% Gel) 15-30 GRAMS 15 GRAMS... UD PRN PO 03/28/18 17:45 04/27/18 17:44 Glucose (Glucose Chew Tab) 4-8 Tablets 4 Tabl... UD PRN PO 03/28/18 17:45 04/27/18 17:44 Dextrose (Dextrose 50% 50ML Syringe) 25-50ML 25ML FOR ... UD PRN IV 03/28/18 17:45 04/27/18 17:44 Glucagon (Glucagon Inj) 1 mg UD PRN SQ 03/28/18 17:45 04/27/18 17:44 Carbohydrates (Carbohydrates For Hypoglycemia) 15-30 GRAMS 15 grams if BSG 54-69... UD PRN PO 03/28/18 17:45 04/27/18 17:44 Ketorolac Tromethamine (Toradol Inj) 30 mg Q6H PRN IV 03/29/18 11:00 04/03/18 10:59
[2018-03-29] MEDS: KETOROLAC TROMETHAMINE 30 MG/ML VIAL IV PRN (19:16)
[2018-03-29] MEDS: LISINOPRIL 10 MG TAB PO SCH (21:28)
[2018-03-29] MEDS: SIMVASTATIN 20 MG TAB PO SCH (21:28)
[2018-03-29] MEDS: DOCUSATE SODIUM/SENNA 50/8.6MG TAB PO SCH (21:28)
[2018-03-29 23:26] VITALS: BP 103/63; PULSE 52; TEMP 36.7; O2SAT 97
[2018-03-29 23:50] VITALS: PULSE 60
[2018-03-30] MEDS: POLYETHYLENE (MIRALAX) 17 GM PACK PO SCH ×4 (05:54→23:28)
[2018-03-30 05:55] VITALS: BP 115/69; PULSE 66; TEMP 37; O2SAT 97
[2018-03-30] MEDS: OXYCODONE HCL IR 5 MG TAB (IMMEDIATE RELEASE) PO PRN ×2 (07:12→23:31)
[2018-03-30 07:25] LABS: BASO % 0.1 %; BASO ABS # 0.02 K/uL (0-0.2); EOS % 0.4 %; EOS ABS # 0.05 K/uL (0-0.5); HEMATOCRIT 35.6 % (42-52); HEMOGLOBIN 12.3 g/dL (14.0-18.0); IG# 0.11 K/uL (0.00-0.02); LYMPH % 16.4 %; LYMPH ABS # 2.25 K/uL (1.2-3.4); MEAN CELL VOLUME 88.1 fL (80-100); MEAN CORPUSCULAR HEMOGLOBIN 30.4 pg (25-34); MEAN CORPUSCULAR HGB CONC 34.6 g/dl (32-36); MEAN PLATELET VOLUME 8.4 fL (7.4-10.4); MONO ABS # 1.51 K/uL (0.11-0.59); NEUT % 71.3 %; NEUT ABS # 9.81 K/uL (1.4-6.5); PLATELET COUNT 162 K/uL (130-400); RED CELL DISTRIBUTION WIDTH CV 13.6 % (11.5-14.5); RED CELL DISTRIBUTION WIDTH SD 44.4 fL (36.4-46.3); WHITE BLOOD COUNT 13.75 K/uL (4.8-10.8)
[2018-03-30] MEDS: ASPIRIN 81 MG ECTAB PO SCH (07:57)
[2018-03-30] MEDS: INSULIN ASPART 100 UNITS/ML 3 ML PEN SC SCH ×4 (08:04→21:42)
[2018-03-30] MEDS: INSULIN GLARGINE SOLOSTAR 100 UNITS/ML 3 ML PEN SC SCH ×2 (08:05→21:44)
[2018-03-30 08:16] VITALS: BP 118/54; PULSE 70; TEMP 36.6; O2SAT 99
--- NOTE | 2018-03-30 09:53 | Progress Note ---
Progress Note Date of Service March 30, 2018. Progress Note Back pain is controlled leg symptoms improved vital signs stable. On exam is good strength testing. Plan at this time will maintain the OLGA drain another 24 hours and anticipate discharge home tomorrow.
[2018-03-30 11:34] VITALS: BP 150/68; PULSE 74; TEMP 37.7; O2SAT 98
[2018-03-30] MEDS: KETOROLAC TROMETHAMINE 30 MG/ML VIAL IV PRN ×2 (12:44→21:41)
[2018-03-30 14:54] VITALS: BP 96/60; PULSE 64; TEMP 36.7; O2SAT 93
--- NOTE | 2018-03-30 19:04 | Progress Note ---
Internal Med Progress Note Date of Service: March 30, 2018. Provider Documentation: SUBJECTIVE: resting comfortably ambulated ok afebrile not moved bowels yet no chest pain or sob OBJECTIVE: Vital Signs-as noted below Exam: General-alert and oriented. Not in distress ENT-Normal hearing Neck-no neck masses Lungs-cta b/l no wheezing no crackles Heart-s1 and s2 heard regular rate and rhythm no murmurs Abdomen-soft bowel sounds present non tender, no distension Extremities-no edema no erythema Musculoskeletal s/p back surgery dressing and drain intact Neuro-alert and awake 'moves extremities Lab data as noted below. ASSESSMENT & PLAN: 58-year-old man status post lumbar spinal fusion with decompression by Dr. Kaiser 1. Postoperative state status post L4-L5, L5-S1 lumbar spinal fusion and decompression by Dr. Kaiser, postop day2 management as per ortho. 2. Diabetes mellitus type 2-A1c Hba1c 6.7 Holding oral meds.On Lantus and ISS. Will monitor. 3. Hypertension-stable,will monitor. 4. Hyperlipidemia-On simvastatin. 5. Leukocytosis-likely inflammatory response. improving. DVT prophylaxis-SCDs Full code Disposition-likely to home on . Vital Signs: Date Time Temp Pulse Resp B/P (MAP) Pulse Ox O2 Delivery O2 Flow Rate FiO2 03/30/18 14:54 36.7 64 18 96/60 (72) 93 Room Air 03/30/18 11:34 37.7 74 18 150/68 (95) 98 Room Air 03/30/18 08:16 36.6 70 17 118/54 (75) 99 Room Air 03/30/18 07:13 Room Air 03/30/18 05:55 37.0 66 16 115/69 (84) 97 Room Air 03/29/18 23:50 60 03/29/18 23:26 36.7 52 16 103/63 (76) 97 Room Air 03/29/18 23:20 Room Air Lab Results: Results Past 24 Hours Test 03/29/18 20:19 03/30/18 06:43 03/30/18 07:15 03/30/18 11:55 Range/Units Bedside Glucose 119 112 129 70-99 mg/dl White Blood Count 13.75 4.8-10.8 K/uL Red Blood Count 4.04 4.7-6.1 M/uL Hemoglobin 12.3 14.0-18.0 g/dL Hematocrit 35.6 42-52 % Mean Corpuscular Volume 88.1 80-100 fL Mean Corpuscular Hemoglobin 30.4 25-34 pg Mean Corpuscular Hemoglobin Concent 34.6 32-36 g/dl Platelet Count 162 130-400 K/uL Mean Platelet Volume 8.4 7.4-10.4 fL Neutrophils (%) (Auto) 71.3 % Lymphocytes (%) (Auto) 16.4 % Monocytes (%) (Auto) 11.0 % Eosinophils (%) (Auto) 0.4 % Basophils (%) (Auto) 0.1 % Neutrophils # (Auto) 9.81 1.4-6.5 K/uL Lymphocytes # (Auto) 2.25 1.2-3.4 K/uL Monocytes # (Auto) 1.51 0.11-0.59 K/uL Eosinophils # (Auto) 0.05 0-0.5 K/uL Basophils # (Auto) 0.02 0-0.2 K/uL RDW Standard Deviation 44.4 36.4-46.3 fL RDW Coefficient of Variation 13.6 11.5-14.5 % Immature Granulocyte % (Auto) 0.8 % Immature Granulocyte # (Auto) 0.11 0.00-0.02 K/uL Test 03/30/18 17:21 Range/Units Bedside Glucose 91 70-99 mg/dl
[2018-03-30] MEDS: LISINOPRIL 10 MG TAB PO SCH (21:38)
[2018-03-30] MEDS: DOCUSATE SODIUM/SENNA 50/8.6MG TAB PO SCH (21:38)
[2018-03-30] MEDS: SIMVASTATIN 20 MG TAB PO SCH (21:38)
[2018-03-30 23:01] VITALS: BP 100/60; PULSE 72; TEMP 36.9; O2SAT 97
[2018-03-31] MEDS: POLYETHYLENE (MIRALAX) 17 GM PACK PO SCH ×2 (06:00→12:35)
[2018-03-31 06:47] VITALS: BP 124/74; PULSE 67; TEMP 36.4; O2SAT 100
[2018-03-31] MEDS: KETOROLAC TROMETHAMINE 30 MG/ML VIAL IV PRN (07:34)
[2018-03-31 07:45] VITALS: O2SAT 100
[2018-03-31 08:14] VITALS: BP 122/70; PULSE 82; TEMP 36.5; O2SAT 99
[2018-03-31] MEDS: INSULIN ASPART 100 UNITS/ML 3 ML PEN SC SCH ×2 (09:14→12:41)
[2018-03-31] MEDS: INSULIN GLARGINE SOLOSTAR 100 UNITS/ML 3 ML PEN SC SCH (09:14)
[2018-03-31] MEDS: ASPIRIN 81 MG ECTAB PO SCH (09:16)
[2018-03-31 09:26] VITALS: O2SAT 99
[2018-03-31 11:21] VITALS: BP 122/70; PULSE 82; TEMP 36.5; O2SAT 99
[2018-03-31] MEDS: OXYCODONE HCL IR 5 MG TAB (IMMEDIATE RELEASE) PO PRN ×2 (12:41→12:43)
--- NOTE | 2018-03-31 13:08 | Discharge Summary ---
Orthopedic Discharge Summary Admission Date/Reason March 28, 2018 at 12:30 Lumbar Spinal Stenosis. Discharge Date/Disposition March 31, 2018 Home Diagnosis Principal Diagnosis: Lumbar spinal stenosis Admission Physical Exam As per Admitting History & Physical. Hospital Course Patient underwent lumbar decompression fusion tolerated this well was taken to the orthopedic floor postoperatively. Postop day #1 he was up and ambulatory progressed the postop day #2. Subsequently on postop day #3 was discharged home. Discharge orders and instructions found in the chart for further review. Discharge Instructions Please refer to the electronic Patient Visit Report (Discharge Instructions) for additional information.
== END 2018-03-31 15:00 | disposition home or self-care (01) | DRG 455 ==
LOC: C.ACU 09:48 → C.3E 12:30 → ENRESERV 16:06
PROVIDERS: ADMIT Orthopaedic Surgery Orthopaedic Surgery of the Spine; ATTEND Orthopaedic Surgery Orthopaedic Surgery of the Spine
PROC: 0SG30AJ Fusion of Lumbosacral Joint with Interbody Fusion Device, Posterior Approach, Anterior Column, Open Approach (ICD-10-PCS; principal; 2018-03-28 12:15)
PROC: 0SG00AJ Fusion of Lumbar Vertebral Joint with Interbody Fusion Device, Posterior Approach, Anterior Column, Open Approach (ICD-10-PCS; principal; 2018-03-28 12:15)
PROC: 0SG3071 Fusion of Lumbosacral Joint with Autologous Tissue Substitute, Posterior Approach, Posterior Column, Open Approach (ICD-10-PCS; principal; 2018-03-28 12:15)
PROC: 0ST40ZZ Resection of Lumbosacral Disc, Open Approach (ICD-10-PCS; principal; 2018-03-28 12:15)
DX: M48.062 Spinal stenosis, lumbar region with neurogenic claudication (principal); D72.829 Elevated white blood cell count, unspecified; I10 Essential (primary) hypertension; E78.5 Hyperlipidemia, unspecified; E11.9 Type 2 diabetes mellitus without complications; Z96.643 Presence of artificial hip joint, bilateral; Z85.038 Personal history of other malignant neoplasm of large intestine; Z90.49 Acquired absence of other specified parts of digestive tract; Z98.49 Cataract extraction status, unspecified eye; Z79.82 Long term (current) use of aspirin; Z79.84 Long term (current) use of oral hypoglycemic drugs